=== PATIENT | female | born 1970 | race Caucasian/White ===

== ENCOUNTER 2016-06-04 19:38 | Observation (INO) | payer OTHER ==
[~2016-06-04] VITALS: Ht 165.1 cm; Wt 94.0 kg
[~2016-06-04 19:38] MED LIST: IBUPROFEN200 M1 PO; KLONOPIN0.5 M1 PO; MOTRIN600 MG PO; PERCOCET 5/31 TABLET PO; PRILOSEC; SKELAXIN800 MG PO; ZOFRAN ODT8 MG PO; ZOFRAN4 MG PO
[2016-06-04 20:31] LABS: HEMATOCRIT 41.4 % (36.0-46.0); MCHC 33.6 G/DL (30.0-36.0); MCV 95.4 FL (83-99); MEAN PLAT.VOLUME 8.8 uM^3 (9.5-12.4); PLATELET COUNT 472 K/uL (156-360); RBC DIS.WIDTH-CV 13.3 % (11.8-14.6); RBC DIS.WIDTH-SD 44.3 % (39-53); RED BLOOD COUNT 4.34 M/uL (3.80-5.20); WHITE BLOOD COUNT 14.6 K/uL (4.1-10.2)
[2016-06-04 20:39] LABS: CHLORIDE 109 mEq/L (99-109); POTASSIUM 3.7 mEq/L (3.7-5.4); SODIUM 141 mEq/L (136-147)
[2016-06-04 20:41] LABS: GLUCOSE 100 mg/dL (70-99)
[2016-06-04 20:43] LABS: ANION GAP 9 MEQ/L (2-14)
[2016-06-04 20:45] LABS: GFR ESTIMATE (CALCULATED) > 59 mL/min/
[2016-06-04 20:46] LABS: UREA NITROGEN (BUN) 6 mg/dL (9-23)
[2016-06-04 20:51] LABS: TROP-I INTERPRETATION NEGATIVE; TROPONIN-I < 0.01 ng/mL (0.0-0.30)
[2016-06-04 23:41] LABS: SERUM ETHYL ALCOHOL < 10 mg/dL
[2016-06-04 23:50] LABS: QUANTITATIVE HCG < 4.0 MIU/ML
[2016-06-05 00:25] LABS: ADD MIUA? NO; BILIRUBIN SMALL; BLOOD NEGATIVE; COLOR DK YELLOW ((YELLOW)); GLUCOSE (STRIP) NEGATIVE; KETONES NEGATIVE; LEUKOCYTES NEGATIVE; NITRITE NEGATIVE; PROTEIN (STRIP) TRACE; SPECIFIC GRAVITY 1.031 (1.000-1.030); UCUL ADDED? NO
[2016-06-05 00:36] LABS: AMPHETAMINE NEGATIVE (500 ng/mL); BARBITURATES NEGATIVE (200 ng/mL); BENZODIAZEPINES NEGATIVE (150 ng/mL); COCAINE NEGATIVE (150 ng/mL); INTERNAL CONTROLS VALID? YES; METHADONE NEGATIVE (200 ng/mL); METHAMPHETAMINE NEGATIVE (500 ng/mL); OPIATES (MORPHINE) NEGATIVE (100 ng/mL); OXYCODONE NEGATIVE (100 ng/mL); PHENCYCLIDINE NEGATIVE (25 ng/mL); PROPOXYPHENE NEGATIVE (300 ng/mL); THC CANNABINOIDS NEGATIVE (50 ng/mL); TRICYCLIC ANTIDEPRESSANTS NEGATIVE (300 ng/mL)
[2016-06-05 01:34] VITALS: BP 140/83
[2016-06-05 02:04] LABS: HDL CHOLESTEROL 46 MG/DL (Desirable>=50); LDL CHOLESTEROL 183 mg/dL (Desirable<100); NON-HDL CHOLESTEROL 211 mg/dL (Desirable<160); TOTAL CHOLESTEROL 257 mg/dL (Desirable<200); TRIGLYCERIDES 142 MG/DL (Normal: <150)
[2016-06-05 02:50] LABS: TROP-I INTERPRETATION NEGATIVE; TROPONIN-I 0.01 ng/mL (0.0-0.30)
[2016-06-05 04:45] VITALS: BP 107/57
[2016-06-05 07:13] LABS: Estimated Average Glucose 111 mg/dL (70-123); HEMOGLOBIN A1c (GLYCOHEMOGLOB) 5.5 % HGB (Below 5.7)
[2016-06-05 08:50] VITALS: BP 123/60
[2016-06-05 10:55] LABS: TROP-I INTERPRETATION NEGATIVE; TROPONIN-I < 0.01 ng/mL (0.0-0.30)
[2016-06-05 11:06] LABS: D-DIMER ELISA 0.17 mg/L FEU (< 0.57)
[2016-06-05 11:50] VITALS: BP 139/69
[2016-06-05] MEDS ORDERED: ASPIR-LOW81 MG PO (14:19)
[2016-06-05] MEDS ORDERED: ATORVASTATIN CA80 MG PO (14:19)
[2016-06-05] MEDS ORDERED: NICOTINE PATCH1 EAC1 TD (14:26)
== END 2016-06-05 16:42 | disposition home or self-care (01) ==
LOC: EME 19:38 → EDOF 23:24 → 5WEST 23:24
PROVIDERS: Hospitalist; Physician Assistant Medical
DX: R07.89 Other chest pain (principal); R20.0 Anesthesia of skin; E78.5 Hyperlipidemia, unspecified; F17.200 Nicotine dependence, unspecified, uncomplicated; D72.829 Elevated white blood cell count, unspecified; H53.9 Unspecified visual disturbance; Z82.41 Family history of sudden cardiac death; Z82.49 Family history of ischemic heart disease and other diseases of the circulatory system
CPT/HCPCS: 70450; 70551; 71020; 80048; 80061; 81003; 83036; 84484; 84702; 85027; 85379; 93005; 93306; 99281; 99284; G0378; G0480; J1650